=== PATIENT | female | born 1950 | race Caucasian/White ===

== ENCOUNTER 2019-05-02 10:32 | Outpatient (CLI) | payer MEDICARE ==
--- NOTE | 2019-05-02 11:20 | BD ---
DEXA BONE DENSITOMETRY: (Dual energy x-ray absorptiometry) DATE: 05/02/2019 HISTORY: 68-year old white female for age-related, post-menopausal, osteoporosis screening. weight: 248 lbs height: 65 in. age of menopause: 48 COMPARISON: None available. FINDINGS: The bone mineral density (BMD) is given in grams per square centimeter (g/cm2): LUMBAR SPINE: BMD (g/cm^2) T score Z score L1: 1.125 1.2 2.9 L2: 1.071 0.4 2.2 L3: 1.063 -0.2 1.8 L4: 1.080 0.2 2.2 Total: 1.083 0.3 2.2 HIP: BMD (g/cm^2) T score Z score Femoral neck: 0.763 -0.8 0.8 Total: 1.042 0.8 2.1 IMPRESSION: 1.) The mean bone mineral density of the lumbar spine is normal. Fracture risk is not increased. 2) The bone mineral density of the femoral neck is normal. Fracture risk is not increased.
== END 2019-05-02 10:33 | disposition home or self-care (01) ==
LOC: BICMAMMO 10:32
PROVIDERS: ATTEND Family Medicine
DX: Z12.31 Encounter for screening mammogram for malignant neoplasm of breast (principal); Z13.820 Encounter for screening for osteoporosis; Z78.0 Asymptomatic menopausal state
CPT/HCPCS: 77063; 77067; 77080